=== PATIENT | female | born 2000 | race Caucasian/White ===

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

== ENCOUNTER 2025-04-21 10:59 | Inpatient (IN) | payer OTHER ==
[2025-04-21] MEDS ORDERED: Mag-Al 1200 mg/1200 mg/30 ML UDCUP ONE (11:29)
[2025-04-21] MEDS ORDERED: Ondansetron PF 4 MG/2 ML Vial ONE ×2 (11:29→16:56)
[2025-04-21] MEDS ORDERED: Lidocaine Viscous Sol 2% 15 ml UD Cup ONE (11:29)
[2025-04-21] MEDS ORDERED: Famotidine/PF 20 mg/2ml Vial ONE (11:30)
[2025-04-21 11:35] LABS: White Blood Cell (WBC) Count 11.86 10x3/uL (4.8-10.8)
[2025-04-21 11:40] LABS: #Basophils 0.06 10x3/uL (0.0-0.2); #Eosinophils 0.19 10x3/uL (0.0-0.7); #Monocytes 0.82 10x3/uL (0.11-0.59); #Neutrophils 8.84 10x3/uL (1.40-6.50); %Basophils 0.5 % (0.0-1.0); %Eosinophils 1.6 % (0.0-10.0); %Lymphocytes 16.1 % (21.0-51.0); %Monocytes 6.9 % (0.0-10.0); %Neutrophils 74.6 % (42.0-75.0); Hematocrit 37.4 % (36.0-47.0); Hemoglobin 12.5 g/dL (12.0-16.0); Mean Corpuscular Hemoglobin 28.2 pg (27.0-31.0); Mean Corpuscular Volume 84.2 fL (78.0-98.0); Platelet Count 419 10x3/uL (130-400); Red Blood Cell (RBC) Count 4.44 mill/uL (4.20-5.40)
[2025-04-21 11:42] LABS: CAUTI Indications for Culture Dysuria,urgency,freq; Glucose, Urine (Dipstick) Normal (Negative); Leukocyte Negative Leu/uL (Negative); Protein, Urine (Dipstick) Negative (Neg-Trace); RBC/HPF 0-3 HPF (0-3); Specific Gravity, Urine 1.012 (1.002-1.036); WBC/HPF 0-3 HPF (0-3)
[2025-04-21 11:44] LABS: Bacteria/HPF 1+ HPF (None Seen)
[2025-04-21 11:45] LABS: Urine Culture Reflex No No
[2025-04-21 12:02] LABS: BHCG - Serum POSITIVE (NEGATIVE); Pregs Control Background? CLEAR/WHITE (CLR/WHITE); Pregs Control Bar Appear? YES (CONTROL BAR)
[2025-04-21 12:04] LABS: ALT (SGPT) 838 U/L (Less than 34); AST (SGOT) 443 U/L (11-34); Albumin 4.0 g/dL (3.1-4.5); Alkaline Phosphatase 212 U/L (40-110); Anion Gap 13 mmol/L (10-20); BUN (Urea Nitrogen) 5 mg/dL (7.0-18.7); Bilirubin, Total 4.3 mg/dL (0.3-1.2); Calc. Creatinine Clearance 0 mL/min (70-130); Calcium 9.8 mg/dL (7.8-10.44); Carbon Dioxide 20 mmol/L (22-29); Chloride 108 mmol/L (98-107); Globulin 3.9 g/dL (2.4-3.5); Glucose 123 mg/dL (70-105); Potassium 3.5 mmol/L (3.5-5.1); Sodium 137 mmol/L (136-145)
[2025-04-21 12:23] LABS: Lipase Greater than 4815 U/L (8-78)
[2025-04-21 18:01] VITALS: BMI 32.6
[2025-04-21] MEDS: cefTRIAXone\\ROCEPHIN 1 GM in Sodium Chloride 0.9% 100 ML IVPB SCH (22:12)
[2025-04-22 05:08] LABS: #Basophils 0.04 10x3/uL (0.0-0.2); #Eosinophils 0.07 10x3/uL (0.0-0.7); #Monocytes 0.62 10x3/uL (0.11-0.59); #Neutrophils 7.15 10x3/uL (1.40-6.50); %Basophils 0.4 % (0.0-1.0); %Eosinophils 0.8 % (0.0-10.0); %Lymphocytes 14.1 % (21.0-51.0); %Monocytes 6.7 % (0.0-10.0); %Neutrophils 77.7 % (42.0-75.0); Hematocrit 35.5 % (36.0-47.0); Hemoglobin 11.4 g/dL (12.0-16.0); Mean Corpuscular Hemoglobin 28.2 pg (27.0-31.0); Mean Corpuscular Volume 87.9 fL (78.0-98.0); Platelet Count 326 10x3/uL (130-400); Red Blood Cell (RBC) Count 4.04 mill/uL (4.20-5.40); White Blood Cell (WBC) Count 9.21 10x3/uL (4.8-10.8)
[2025-04-22 05:36] LABS: ALT (SGPT) 564 U/L (Less than 34); AST (SGOT) 210 U/L (11-34); Albumin 3.3 g/dL (3.1-4.5); Alkaline Phosphatase 178 U/L (40-110); Anion Gap 17 mmol/L (10-20); BUN (Urea Nitrogen) 4 mg/dL (7.0-18.7); Bilirubin, Total 2.5 mg/dL (0.3-1.2); Calc. Creatinine Clearance 255 mL/min (70-130); Calcium 9.0 mg/dL (7.8-10.44); Carbon Dioxide 15 mmol/L (22-29); Chloride 112 mmol/L (98-107); Globulin 3.4 g/dL (2.4-3.5); Glucose 79 mg/dL (70-105); Potassium 3.4 mmol/L (3.5-5.1); Sodium 141 mmol/L (136-145)
[2025-04-22 05:38] LABS: Lipase 2232 U/L (8-78)
[2025-04-23 07:34] LABS: #Basophils 0.04 10x3/uL (0.0-0.2); #Eosinophils 0.28 10x3/uL (0.0-0.7); #Monocytes 0.71 10x3/uL (0.11-0.59); #Neutrophils 6.75 10x3/uL (1.40-6.50); %Basophils 0.4 % (0.0-1.0); %Eosinophils 3.1 % (0.0-10.0); %Lymphocytes 14.2 % (21.0-51.0); %Monocytes 7.8 % (0.0-10.0); %Neutrophils 74.2 % (42.0-75.0); Hematocrit 34.8 % (36.0-47.0); Hemoglobin 11.2 g/dL (12.0-16.0); Mean Corpuscular Hemoglobin 28.1 pg (27.0-31.0); Mean Corpuscular Volume 87.2 fL (78.0-98.0); Platelet Count 322 10x3/uL (130-400); Red Blood Cell (RBC) Count 3.99 mill/uL (4.20-5.40); White Blood Cell (WBC) Count 9.10 10x3/uL (4.8-10.8)
[2025-04-23 07:40] LABS: ALT (SGPT) 388 U/L (Less than 34); AST (SGOT) 70 U/L (11-34); Albumin 3.4 g/dL (3.1-4.5); Alkaline Phosphatase 160 U/L (40-110); Anion Gap 13 mmol/L (10-20); BUN (Urea Nitrogen) Less than 4 mg/dL (7.0-18.7); Bilirubin, Total 1.1 mg/dL (0.3-1.2); Calc. Creatinine Clearance 294 mL/min (70-130); Calcium 9.1 mg/dL (7.8-10.44); Carbon Dioxide 20 mmol/L (22-29); Chloride 108 mmol/L (98-107); Globulin 3.5 g/dL (2.4-3.5); Glucose 98 mg/dL (70-105); Potassium 3.3 mmol/L (3.5-5.1); Sodium 138 mmol/L (136-145)
[2025-04-23 16:16] VITALS: BP 114/73; TEMP 98.6
== END 2025-04-23 16:05 | disposition home or self-care (01) | DRG 444 ==
LOC: ERS 10:59 → ERHOLD 17:35 → T4-A 20:38
PROVIDERS: ADMIT Internal Medicine; ATTEND Internal Medicine
DX: K80.42 Calculus of bile duct with acute cholecystitis without obstruction (principal); K85.90 Acute pancreatitis without necrosis or infection, unspecified; R18.8 Other ascites; Z88.0 Allergy status to penicillin; Z98.890 Other specified postprocedural states
CPT/HCPCS: 36415; 74181; 76376; 76705; 76856; 80053; 81001; 83690; 84478; 84702; 84703; 85025; 86900; 86901; 96361; 96374; 96375; 96376; J0696; J1308; J2270; J2272; J2405; J2543; J7120; S8037